=== PATIENT | male | born 1945 | race Caucasian/White ===

== ENCOUNTER → 2024-11-01 08:32 | Outpatient (REF) | payer MEDICARE, OTHER, SELFPAY ==
[2024-11-01 09:54] LABS: Hematocrit 43.0 % (39.0-52.0); Hemoglobin 15.9 g/dL (13.0-18.0); Mean Corp Hgb Conc. 37.0 g/dL (33.0-37.0); Mean Corpuscular Volume 86.0 fL (80.0-94.0); Platelet Count 227 10^3/uL (130-400); Red Cell Dist. Width 11.9 % (11.5-14.5)
[2024-11-01 10:14] LABS: Blood Urea Nitrogen 14 mg/dl (9-20); Calcium 9.7 mg/dl (8.4-10.2); Carbon Dioxide 28 mmol/L (22-30); Chloride 101 mmol/L (98-107); Glucose 102 mg/dl (70-99); Potassium 3.7 mmol/L (3.5-5.1); Sodium 135 mmol/L (135-145); eGFR > 60.00
== END ==
LOC: SDSPAT 08:32
PROVIDERS: ATTENDING PHYSICIAN Specialist; FAMILY PHYSICIAN Family Medicine
DX: Z01.818 Encounter for other preprocedural examination (principal)
CPT/HCPCS: 36415; 80048; 85027; 93005

== ENCOUNTER 2024-11-16 12:42 | Inpatient (IN) | payer MEDICARE, OTHER, SELFPAY ==
[2024-11-01 08:56] VITALS: BMI 23.8
[2024-11-15] VITALS (16 sets, daily range): BP systolic 95–153; BP diastolic 57–87; BMI 23.8
[2024-11-15] MEDS: NORMOSOL-R/PLASMALYTE-A 1000 IV (10:45)
[2024-11-15] MEDS: DILAUDID 0.25 MG IV (14:26)
[2024-11-15] MEDS: VALIUM INJECTION 5 MG IV (14:40)
--- NOTE | 2024-11-15 16:15 | PTCARENOTE ---
Addendum...1600 Traction removed at bedside on 2S as ordered by Dr Sánchez.
--- NOTE | 2024-11-15 16:52 | PTCARENOTE ---
Received pt from PACU in bed. CBI running, urine bright red no clots observed fluids wide open. VSS. 3/10 rectal pain. Rubber band traction removed @ 1600. Admission as documented.
[2024-11-15] MEDS: COLACE 100 MG PO (17:23)
[2024-11-15] MEDS: NORVASC 10 MG PO (17:23)
[2024-11-15 21:22] LABS: Glucose - Point of Care 191 mg/dl (70-99)
--- NOTE | 2024-11-15 21:37 | W.PN.UPDATE ---
Update Note
Progress Note Update
Rapid response
Unable to get BP, manual BP 64/44 95 95%. RN reports as patient sat up in bed from lying position, he felt lightheaded and noted BP being low. Patient seen and evaluated, states he feels lightheaded, felt he couldn't see much for few seconds,
Denies loosing consciousness. denies chest pain, shortness of breath, denies chills. just some irritation at the catheter site. Lungs clear, HR RR, + BS, mild tender at the pubic area, no edema, Maradiaga catheter with blood color urine Bladder scan
25cc.
Bolus ordered, Midodrine 10mg PO (held), labs ordered, telemetry, EKG
BP 105/55 80 as the bolus begin -> 135/60's 75
Patient states feeling much better
Lab resulted Na 125 continue NSS. K 3.4 KCL PO 20meq once
Urology made aware.
labs in AM, NSS
likely hypovolemia, Anaesthesia-related hypotension, postural hypotension
Orthostatic VS BID
fall precautions.
--- NOTE | 2024-11-15 22:00 | RR ---
A Rapid Response was called on this patient, please see Rapid Response form.
Pt. tried sitting up for the first time s/p surgery to ~90 degrees. Shortly after sitting up pt. stated he didn't feel very well, dizzy, and faint. Pt. was laid back, unable to be placed in Trendelenburg d/t CBI infusing. Glucose obtained within
limits but BP reading 64/44 manually at which time RR was called. Throughout event pt. would take several seconds before answering, occasionally mumbling replies, but does not think he went fully unconscious. Bolus started with positive results, BP
WNL several minutes after. Pt. had lingering feelings of 'wooziness' after event but felt much better, able to participate actively in conversation, and make jokes. He recalls that during the height of the even he was having blotchy vision and
trouble focusing on what staff members were saying. EKG obtained and tele monitor applied and reviewed by house REELING MACHINE SETUP OPERATOR. CBI continues to output tamanna red blood with occasional clots despite being wide open. Will closely monitor.
[2024-11-15 22:15] LABS: Blood Urea Nitrogen 17 mg/dl (9-20); Calcium 9.0 mg/dl (8.4-10.2); Carbon Dioxide 25 mmol/L (22-30); Chloride 94 mmol/L (98-107); Estimated Creatinine Clearance 88 ml/min; Glucose 207 mg/dl (70-99); Magnesium 2.0 mg/dl (1.6-2.3); Potassium 3.4 mmol/L (3.5-5.1); Sodium 125 mmol/L (135-145); eGFR > 60.00
[2024-11-15 22:17] LABS: Hematocrit 39.4 % (39.0-52.0); Hemoglobin 14.7 g/dL (13.0-18.0); Mean Corp Hgb Conc. 37.3 g/dL (33.0-37.0); Mean Corpuscular Volume 84.9 fL (80.0-94.0); Platelet Count 243 10^3/uL (130-400); Red Cell Dist. Width 11.7 % (11.5-14.5)
[2024-11-15] MEDS: NSS 1000 IV (23:59)
[2024-11-16] VITALS (7 sets, daily range): BP systolic 96–131; BP diastolic 51–69
[2024-11-16] MEDS: KCL 20 MEQ PO
[2024-11-16] MEDS: EMLA CREAM 5 GRAM TOPICAL ×3 (00:01→16:25)
[2024-11-16] MEDS: PERCOCET 5/325 1 TABLET PO (02:13)
--- NOTE | 2024-11-16 03:00 | PTCARENOTE ---
Pt. called stating he felt as if he had blood running down his leg and had extreme pelvic pain and cramping. Pt. noted to have moderate amount of bleeding around parra catheter and onto legs and bed. CBI still infusing wide open with bright red
bloody urine in catheter tubing. Hand irrigated and obtained ~20ml of clots varying in size. Pt. felt near immediate relief following. CBI continues to run wide open. Will monitor.
[2024-11-16] MEDS: NSS 1000 IV (05:19)
--- NOTE | 2024-11-16 06:10 | PTCARENOTE ---
Updated condominium property manager urologist Dr. Solis regarding 0300 clotting despite running CBI wide open. Instructed to leave CBI running and to keep the catheter in place until patient can be evaluated this AM by the provider.
[2024-11-16 06:32] LABS: Hematocrit 29.3 % (39.0-52.0); Hemoglobin 11.0 g/dL (13.0-18.0); Mean Corp Hgb Conc. 37.5 g/dL (33.0-37.0); Mean Corpuscular Volume 85.4 fL (80.0-94.0); Platelet Count 224 10^3/uL (130-400); Red Cell Dist. Width 11.5 % (11.5-14.5)
[2024-11-16 06:36] LABS: Blood Urea Nitrogen 20 mg/dl (9-20); Calcium 8.2 mg/dl (8.4-10.2); Carbon Dioxide 22 mmol/L (22-30); Chloride 96 mmol/L (98-107); Estimated Creatinine Clearance 103 ml/min; Glucose 153 mg/dl (70-99); Potassium 3.5 mmol/L (3.5-5.1); eGFR > 60.00
[2024-11-16 06:42] LABS: Sodium 123 mmol/L (135-145)
--- NOTE | 2024-11-16 06:52 | W.PN.UPDATE ---
Update Note
Progress Note Update
pt s/p TURP with dr macedo yesterday
has had sig hematuria post op
required several hand irrigations and cbi at high rate
pt did have rapid response called last pm due to hypotension- resolved with fluid bolus- at that time hgb stable/no cp and ekg unchanged
this am pt comfortable- abd soft
with cbi wide open- urine larkin
hand irrigated- no sig clot burden recovered
tried restarting traction- seemd to make hematuria worse
plan:
npo for now
continue cbi and observe
trend hgb
will discuss with dr macedo this am
--- NOTE | 2024-11-16 08:30 | W.PN.URO.CBU ---
Today's Communication / Plan
-
rubber band traction/tamponade x 90 minutes
CBI until 11:00
TXA
repeat H&H during early PM
will reassess later
, Anusha, at bedside
Assessment / Plan
-
post-TURP bleeding
appears to have abated
Diagnosis
-
Date of Service: November 16, 2024
-
Patient Diagnosis:
s/p TURP
Post Op Day: 1
Subjective
-
'I feel okay now.'
Objective
-
Vital Signs
Temp Pulse Resp BP Pulse Ox
97.9 F 81 16 96/51 97
11/16/24 07:30 11/16/24 07:30 11/16/24 07:30 11/16/24 07:30 11/16/24 07:30
Intake and Output
11/15/24 11/16/24 11/17/24
06:59 06:59 06:59
Intake Total 1500 / 1500
Output Total 2120 / 3060 940 / 940
Balance -620 / -1560 -940 / -940
Intake:
Oral fluids 1200 / 1200
IV fluids (Total) 300 / 300
Normosol 300 / 300
Output:
True Urine Output from CBI 0 / 3060 940 / 940
Laboratory Results
11/16/24 22:45
Physical Exam
-
General - well developed, well nourished, no acute distress
Abdomen - soft, non-tender, positive bowel sounds, no CVAT, no incisional pain or distention
Genitalia - Maradiaga: balloon deflated, repositioned, then refilled with 50 ml; applied to rubber band traction; hand-irrigated w/o clots; pink outflow
[2024-11-16] MEDS: CYKLOKAPRON 1300 MG PO (09:00)
[2024-11-16] MEDS: COLACE 100 MG PO ×3 (09:01→16:20)
[2024-11-16 09:39] LABS: Glucose - Point of Care 139 mg/dl (70-99)
--- NOTE | 2024-11-16 10:13 | CM ---
Reviewed the chart notes and spoke with the patient and his spouse at the bedside. The patient resides with his spouse in a two story home with two steps to enter. The patient has a shower chair and grab bar in bathroom. The patient reports no VN
or SNF in the past. The patient confirmed his pharmacy of choice is [facility] [address] [place]. CM continues to be available to patient/family and is monitoring medical plan for needs at discharge.
Plan: Discharge to home with no needs when medically stable.
[2024-11-16] MEDS: DETROL LA 4 MG PO (11:03)
--- NOTE | 2024-11-16 11:32 | PTCARENOTE ---
Patient compains of not feeling good.Denied feeling lightheaded.Vital signs and blood sugar checked and were all stable.Shortly after he started to have more bladder pain and i irrigated him for a few clots until he said he felt much better.Traction
was removed as ordered.Bladder irrigation continues. Irrigation to be stopped at 1130 but wanted to check with Dr. Sánchez before I do since he just had some clots.
--- NOTE | 2024-11-16 12:24 | W.PN.UPDATE ---
Update Note
Progress Note Update
Hematuria has improved
single clot with hand-irrigation
CBI running with pink outflow
Plan:
Keep CBI
TXA
rec-check H&H
posted for OR in AM IF bleeding fails to resolve
[2024-11-16 13:11] LABS: Hematocrit 25.4 % (39.0-52.0); Hemoglobin 9.6 g/dL (13.0-18.0)
[2024-11-16 13:28] LABS: Blood Urea Nitrogen 20 mg/dl (9-20); Calcium 8.4 mg/dl (8.4-10.2); Carbon Dioxide 23 mmol/L (22-30); Chloride 98 mmol/L (98-107); Estimated Creatinine Clearance 103 ml/min; Glucose 133 mg/dl (70-99); Potassium 3.5 mmol/L (3.5-5.1); Sodium 123 mmol/L (135-145); eGFR > 60.00
--- NOTE | 2024-11-16 16:14 | W.PN.UPDATE ---
Update Note
Progress Note Update
'I feel so much better.'
VSS
Maradiaga: clear to pale pink outflow
Abd: soft
Plan: CBI overnight; will reassess in AM
[2024-11-16] MEDS: CYKLOKAPRON 650 MG PO ×2 (16:20→21:38)
[2024-11-16] MEDS: NORVASC PO (17:37)
[2024-11-16 22:24] LABS: Hematocrit 23.8 % (39.0-52.0); Hemoglobin 9.0 g/dL (13.0-18.0)
[2024-11-17] MEDS: EMLA CREAM TOPICAL ×2 (01:53→08:45)
[2024-11-17] MEDS: NSS IV (01:54)
[2024-11-17 03:15] VITALS: BP 101/58
--- NOTE | 2024-11-17 07:16 | W.PN.URO.CBU ---
Today's Communication / Plan
-
stop CBI
Maradiaga removal
voiding trial
potential d/c later today
Assessment / Plan
-
post-TURP bleeding
appears to have abated
Diagnosis
-
Date of Service: November 17, 2024
-
Patient Diagnosis:
s/p TURP
Post Op Day: 2
Subjective
-
feels much better
nohand-irrigation required
Objective
-
Vital Signs
Temp Pulse Resp BP Pulse Ox
98.9 F 80 16 101/58 96
11/17/24 03:15 11/17/24 03:15 11/17/24 03:15 11/17/24 03:15 11/17/24 03:15
Intake and Output
11/16/24 11/17/24 11/18/24
06:59 06:59 06:59
Intake Total 1500 / 1500 900 / 900
Output Total 2119
Balance -620 / -1560 -1115 / -1115
Intake:
Oral fluids 1200 / 1200
IV fluids (Total) 300 / 300 900 / 900
Normosol 300 / 300
Output:
True Urine Output from CBI 2119
Laboratory Results
11/16/24 12:52
AM H&H pending
Physical Exam
-
General - well developed, well nourished, no acute distress
Chest - clear bilaterally
Abdomen - soft, non-tender, positive bowel sounds, no CVAT, no distention
Genitalia - Maradiaga with pale pink outflow
[2024-11-17 07:28] LABS: Hematocrit 25.1 % (39.0-52.0); Hemoglobin 9.3 g/dL (13.0-18.0)
[2024-11-17 07:45] VITALS: BP 126/68
[2024-11-17] MEDS: CYKLOKAPRON 650 MG PO (08:46)
[2024-11-17] MEDS: COLACE 100 MG PO ×2 (08:49→11:55)
--- NOTE | 2024-11-17 10:10 | W.PN.UPDATE ---
Update Note
Progress Note Update
Has voided 1x since Maradiaga removal: ~ 125 ml [id number], no clots
H&H improved
VS stable
feels fit for discharge.
at bedside
--- NOTE | 2024-11-17 10:11 | W.DS.TRANS ---
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
-
Discharge Instructions:
Sleep Apnea Risk Intermediate
Discharge Diagnosis/Procedures s/p TURP for BPH causing voiding dysfunction
Diet No restrictions
Activity No strenuous activity
Driving Restrictions As prior to admission
Bathing Restrictions None
Instructions:
Stand-Alone Forms:
Changes to Home Medications: No
Discharge Medications:
DC Medications w/original date entered in [employer]
cholecalciferol (vitamin D3) 10 mcg (400 unit) tablet (Vitamin D3) 1,000 units PO QPM 07/15/17
hydrochlorothiazide 25 mg tablet 25 mg PO DAILY 07/15/17
hyoscyamine sulfate 0.125 mg sublingual tablet (Levsin/SL) 0.125 mg PO PRN PRN Abd Cramping 07/15/17
amlodipine 10 mg tablet 10 mg PO QPM 11/06/24
losartan 100 mg tablet 100 mg PO DAILY 11/06/24
multivitamin 1 tab PO QPM 11/06/24
phenazopyridine 200 mg tablet 200 mg PO TID PRN dysuria 6 doses #30 tabs 11/15/24
Home Medication Changes
Pending Results: Yes (pathology)
--- NOTE | 2024-11-17 10:34 | CM ---
Reviewed the chart notes and spoke with the patient and spouse at the bedside. IMM reviewed. CM continues to be available to patient/family and is monitoring medical plan for needs at discharge.
Plan: Discharge to home when medically stable. No needs.
[2024-11-17 11:10] VITALS: BP 128/66
== END 2024-11-17 13:28 | disposition home or self-care (01) | DRG 713 ==
LOC: 2 SOUTH 12:42
PROVIDERS: Nurse Practitioner Gerontology; Specialist; ADMITTING PHYSICIAN Specialist
PROC: 0VT08ZZ Resection of Prostate, Via Natural or Artificial Opening Endoscopic (ICD-10-PCS; 2024-11-15)
DX: N40.1 Benign prostatic hyperplasia with lower urinary tract symptoms (principal); D62 Acute posthemorrhagic anemia; I95.9 Hypotension, unspecified; R31.9 Hematuria, unspecified; R33.9 Retention of urine, unspecified; I10 Essential (primary) hypertension; E16.2 Hypoglycemia, unspecified; K58.9 Irritable bowel syndrome, unspecified; Z85.821 Personal history of Merkel cell carcinoma; Z83.3 Family history of diabetes mellitus; Z82.49 Family history of ischemic heart disease and other diseases of the circulatory system
CPT/HCPCS: 80048; 82962; 83735; 85014; 85018; 85027; 86850; 86900; 86901; 88305; 93005

== ENCOUNTER 2024-11-18 10:07 | Inpatient (IN) | payer MEDICARE, OTHER, SELFPAY ==
[2024-11-18] VITALS (8 sets, daily range): BP systolic 95–147; BP diastolic 57–95
--- NOTE | 2024-11-18 07:50 | ED.GENMED ---
History of Present Illness
General
Chief Complaint: Male Genito-Urinary Symptoms
Source: patient and records
Exam Limitations: none
Time Seen by Provider: 11/18/24 07:38
History of Present Illness
History of Present Illness:
79yoM with a history of hypertension and BPH s/p TURP on 11/15/[address] Sánchez presenting with his for evaluation of hematuria. Patient was hospitalized after the procedure due to postoperative bleeding. His hemoglobin was 14.7
preoperatively and dropped to 9.0 at its lowest. He required CBI and had a rapid response due to hypotension at one point. His Maradiaga catheter was removed yesterday and he was discharged. His describes his urine as 'dilute fruit punch' at the
time of discharge. He was passing small clots overnight and now is only able to urinate in small dribbles. Urine is described as bright red. He also feels lightheaded by has not lost consciousness. He had a fever of 100.7 yesterday evening but
has not had a fever since and denies feeling feverish currently. He spoke with his urologist last night who prescribed an antibiotic but he has not been able to pick this up yet as his pharmacy was closed.
Past History
Past History
ED Past Medical History: HTN
ED Past Surgical History: Tonsilectomy
Social History
Tobacco: Non-smoker
Alcohol: None
Drug: None
Personal:
Living: with family
Phy Exam
General Physical Exam
General Presentation: well appearing and no apparent distress
General Skin: warm, dry and pale
General Habitus: normal and elderly
General Mental: alert
ENT Exam
ENT Exam: normocephalic
Gastrointestinal Exam
Gastrointestinal Exam: soft, non distended and other (+Suprapubic discomfort)
Genitourinary Exam Male
Exam Male: other (Dark red urine in urine cup. No clots visualized. )
Neurological Exam
Neurological Exam: alert
Pascual Coma Scale
Eye Opening: Spontaneous
Verbal Response: Oriented
Motor Response: Obeys Commands
GCS Total Score: 15
Skin Exam
Skin Exam: normal color and warm/dry
Psychiatric Exam
Psychiatric Exam: normal mood/affect
Sepsis
Sepsis Screening
Sepsis Assessment: Sepsis Ruled Out
Sepsis Screen
Sepsis Screen: Sepsis Ruled Out
Date: 11/18/24
Time: 11:28
Course
Orders/Labs/Results
Orders:
Orders
11/18/24 07:53
Cardiac Monitoring- Treatment ONCE
11/18/24 08:16
Complete Blood Count/With Diff Urgent
Comprehensive Metabolic Panel Urgent
Lactate Level [Lactic Acid] Urgent
PTT Urgent
Prothrombin Time Urgent
11/18/24 08:24
Urinalysis Reflex To Culture Urgent
Date Specimen was Collected: 11/18/24
Time Specimen was Collected: 08:23
Urine Microscopic Reflex Cult Urgent
Urine Culture Urgent
BELLO Source: U
Specimen Description:
Date Specimen was Collected: 11/18/24
Time Specimen was Collected: 08:23
11/18/24 09:06
Potassium Chloride [KCl] 40 meq PO NOW STA
11/18/24 09:12
CefTRIAXone [Rocephin] 2,000 mg IV NOW STA
11/18/24 09:43
Admit/Transfer Patient As Directed
Co-Sign Provider:
Level of Care: Inpatient admission
Assign to:: Telemetry
Physician / Group: yee caldwell
Diagnosis: Acute blood loss anemia,UTI,hypotension
Reason for Telemetry: Arrhythmia
Date to Stop Telemetry: 11/21/24
Time to Stop Telemetry: 11:00
Reason for Hospitalization: Acute blood loss anemia,UTI,hypotension
Expected length of stay greater than two midnights?: Yes
ELOS- Estimated Length of Stay in days: 3
I certify the patient meets the requirements for IP care: Yes
PRN Pain Medication Management As Directed
May give lesser potent ordered pain med per pt: Yes
preference::
Protocol:: Medication orders for pain may be administered in a
manner that supports deferring to patient preference
when the pt is:
- Requesting an ordered lesser potent pain medication.
Least to most potent pain medications are defined
as: acetaminophen < NSAID < tramadol < opioids
(morphine, oxycodone, hydromorphone).
- Requesting a lesser dose of the same medication IF
ORDERED.
- Requesting a less intrusive route of administration
if both routes are prescribed by the provider (PO <
IV).
11/18/24 09:44
Code Status As Directed
Resuscitation Status: Full Code
11/18/24 09:[address] Non Medication Order As Directed
Physician Order: NOTIFY MD WHEN MED REC DONE
11/18/24 09:49
Morphine Sulfate 1 mg IV Q4HPRN PRN
11/18/24 09:53
UROLOGY CONSULT Routine
Consulting Provider: Juan Sánchez
Was physician already notified: Yes
11/18/24 10:00
Blood Culture Q30M
BELLO Source: Blood/Venous
Specimen Description:
0.9% Sodium Chloride 1000 ml [Nss] 1,000 ml IV 100 mls/hr
11/18/24 10:02
Osmolality Serum [Serum Osmolality] Urgent
Osmolality, Random Urine Urgent
Urine Sodium Urgent
11/18/24 10:30
Blood Culture Q30M
BELLO Source: Blood/Venous
Specimen Description:
11/18/24 17:00
Sodium Routine
11/18/24 21:00
H&H Routine
11/19/24 09:00
CefTRIAXone [Rocephin] 1,000 mg IV Q24H
Sterile Water [Sterile Water For Injection] 10 ml IV Q24H
11/21/24 11:00
DC Protocol for Telemetry ONCE
Abnormal Lab Results
11/18/24 11/18/24
08:16 08:24
WBC 12.0 H 10^3/uL
(4.8-10.8)
RBC 2.57 L 10^6/uL
(4.70-6.10)
Hgb 8.2 L g/dL
(13.0-18.0)
Hct 21.9 L %
(39.0-52.0)
MCH 31.9 H pg
(27.0-31.0)
MCHC 37.4 H g/dL
(33.0-37.0)
Abs Immat Gran (auto) 0.1 H 10^3/uL
(0-0.05)
Absolute Neuts (auto) 8.9 H 10^3/uL
(1.4-6.5)
Absolute Monos (auto) 1.5 H 10^3/uL
(0.1-0.6)
Lymphocytes % 12.0 L %
(20.5-51.1)
Monocytes % 12.7 H %
(1.7-9.3)
PT 15.4 H Sec
(11.4-14.6)
Sodium 124 L mmol/L
(135-145)
Potassium 3.1 L mmol/L
(3.5-5.1)
Chloride 95 L mmol/L
(98-107)
Creatinine 0.6 L mg/dL
(0.7-1.3)
Glucose 126 H mg/dl
(70-99)
Calcium 8.1 L mg/dl
(8.4-10.2)
Alkaline Phosphatase 35 L U/L
(38-126)
Total Protein 5.4 L g/dl
(6.3-8.2)
Urine Ketones 1+ A
(Negative)
Ur Occult Blood Reflex 4+ A
(Negative)
Urine Nitrite (Reflex) Positive A
(Negative)
Urine Bilirubin 1+ A
(Negative)
Leukocyte Esterase Rfl 3+ A
(Negative)
Urine RBC 30-40 A /HPF
(0-2)
Urine WBC (Reflex) 11-15 A /HPF
(0-5)
Urine Bacteria (Reflex) Moderate A
(Negative)
Urine Albumin (Reflex) 4+ A
(Neg - Trace)
11/18/24 08:16
11/18/24 08:16
Vital Signs
Initial and Last Documented VS:
Initial Vital Signs
Temp Pulse Resp BP Pulse Ox
99.2 F 89 18 95/63 97
11/18/24 06:32 11/18/24 06:32 11/18/24 06:32 11/18/24 06:32 11/18/24 06:32
Last Documented Vital Signs
Temp Pulse Resp BP Pulse Ox
99.2 F 85 20 114/74 98
11/18/24 06:32 11/18/24 08:00 11/18/24 08:00 11/18/24 11:08 11/18/24 08:00
MDM/Problems Addressed
Differential Diagnosis Includes:
79yoM here with ongoing hematuria and lightheadedness. Also had a fever last night. S/p TURP 3 days ago and admitted postop for bleeding and discharged yesterday. BP 95/63 in triage. Remainder vital stable. He appears pale but is nontoxic. There
is suprapubic tenderness on exam. Differential diagnosis includes but is not limited to: Postoperative bleeding, symptomatic anemia, urinary tract infection
Initial ED plan: Check CBC, CMP, coags, type and screen, and UA.
*Pulse Oximetry
SaO2: 97
Oxygen Mode of Delivery: Room air
Patient hypoxic: no (97%)
*Critical Care Note
Total Time (30-74mins, 75-104mins- exclusive of procedures): Not Applicable
Update Note
Update Note:
Labs reveal a hemoglobin of 8.2, down from 9.3 yesterday. White count is 12 which is downtrending. Sodium 124 which is consistent with recent admission. Renal function stable. UA is nitrite positive with moderate bacteria. Urology notified of
patient. IV Rocephin ordered and patient admitted for further management.
ED Attending Note
-
Portions of this chart may have been created with voice recognition software.� Occasional wrong word or��sound alike� substitutions may have occurred due to the inherent limitations of voice recognition software.
Discharge Plan
Departure
Patient Disposition: Admit
Date of Disposition: 11/18/24
Time of Disposition: 09:18
Presentation/result/management discussed w/ accepting MD/DO: Hospitalist
Discharge Problem:
Hematuria, Acute blood loss anemia
Interventions
Interventions:
*Risk Screen - Suicide Last Done: 11/18/24 06:32
ED-Male Genitourinary Assessment Last Done: 11/18/24 09:57
[2024-11-18 08:43] LABS: Hematocrit 21.9 % (39.0-52.0); Hemoglobin 8.2 g/dL (13.0-18.0); Mean Corp Hgb Conc. 37.4 g/dL (33.0-37.0); Mean Corpuscular Volume 85.2 fL (80.0-94.0); Nucleated Red Blood Cells % 0 % (-); Platelet Count 159 10^3/uL (130-400); Red Cell Dist. Width 11.9 % (11.5-14.5)
[2024-11-18 08:45] LABS: Urine Character Clear (Clear)
[2024-11-18 08:53] LABS: Urine Squamous Cell 0-2 /LPF (Few)
[2024-11-18 08:54] LABS: INR 1.19; PT 15.4 Sec (11.4-14.6)
[2024-11-18 08:54] LABS: Urine Red Blood Cell 30-40 /HPF (0-2)
[2024-11-18 08:55] LABS: APTT 29.7 Sec (23.4-35.0)
[2024-11-18 09:04] LABS: ALT (SGPT) 17 U/L (0-50); AST (SGOT) 19 U/L (17-59); Albumin 3.5 g/dl (3.5-5.0); Alkaline Phosphatase 35 U/L (38-126); Blood Urea Nitrogen 10 mg/dl (9-20); Calcium 8.1 mg/dl (8.4-10.2); Carbon Dioxide 26 mmol/L (22-30); Chloride 95 mmol/L (98-107); Glucose 126 mg/dl (70-99); Potassium 3.1 mmol/L (3.5-5.1); Sodium 124 mmol/L (135-145); Total Protein 5.4 g/dl (6.3-8.2); eGFR > 60.00
[2024-11-18] MEDS: KCL 40 MEQ PO (09:33)
[2024-11-18] MEDS: ROCEPHIN 2000 MG IV (09:34)
--- NOTE | 2024-11-18 09:48 | HPS.HSE ---
Family Physician
-
Family Physician: Kassi Pate
Chief Complaint
-
Hematuria and fever
History of Present Illness
79-year-old male with past medical history of BPH status post recent TURP, hypertension came to the hospital with ongoing hematuria. Per spouse at bedside patient also spiked a fever last night. Patient was recently here earlier this week and had
TURP on 11/15/2024. Patient was discharged on 11/17/2024. Later that day he developed fever. Currently he denies any chest pain, shortness of breath. Denies any cough. Does noted clots overnight which has been slowly improving.
Medical History
Past Medical History
Past Medical History: Reports HTN and Other (BPH)
Past Surgical History: Reports Tonsilectomy and Urological (TURP)
Social History
Tobacco: Non-smoker
Family History
Family History: Not pertinent
Allergies / Home Medications
Allergies reflects when Allergies were last updated in [employer].
Home Medications with original date entered in [employer]
Allergy/Medication List:
Allergies
Allergy/AdvReac Type Severity Reaction Status Date / Time
tamsulosin Allergy Hypotension Verified 11/18/24 06:40
Home Medications
cholecalciferol (vitamin D3) 10 mcg (400 unit) tablet (Vitamin D3) 1,000 units PO QPM 07/15/17
hydrochlorothiazide 25 mg tablet 25 mg PO DAILY 07/15/17
hyoscyamine sulfate 0.125 mg sublingual tablet (Levsin/SL) 0.125 mg PO PRN PRN Abd Cramping 07/15/17
amlodipine 10 mg tablet 10 mg PO QPM 11/06/24
losartan 100 mg tablet 100 mg PO DAILY 11/06/24
multivitamin 1 tab PO QPM 11/06/24
phenazopyridine 200 mg tablet 200 mg PO TID PRN dysuria 6 doses #30 tabs 11/15/24
Review of Systems
-
History Source: Patient and Family
A 12 point ROS was completed and negative except as noted: Yes
Abdomen/GI: Reports Abdominal Pain
: Reports Dark Urine
Physical Exam
Vital Signs
Vital Signs
Temp Pulse Resp BP Pulse Ox
99.2 F 85 20 110/59 98
11/18/24 06:32 11/18/24 08:00 11/18/24 08:00 11/18/24 08:00 11/18/24 08:00
Physical Exam
General: No Apparent Distress and Comfortable
HEENT: NormoCephalic and Moist mucous membranes; No Anicteric
Respiratory: Clear and Non Labored Respirations; No Wheezes
Cardiac: S1/S2 and Regular Rhythm
Breast: Deferred by me
GI: Soft and Non Tender
Rectal: Deferred by Provider
Genito-urinary: No costovertebral tender and Other (Suprapubic tenderness)
Musculoskeletal: No Edema
Neuro: Awake, Alert, Oriented and AO x 3
Psych: Calm and Intact Judgment/Insight
Laboratory Results
-
11/18/24 08:16
Laboratory Results
PT 15.4 Sec (11.4-14.6) H 11/18/24 08:16
INR 1.19 11/18/24 08:16
APTT 29.7 Sec (23.4-35.0) 11/18/24 08:16
Lactic Acid 1.0 mmol/L (0.7-2.0) 11/18/24 08:16
Total Bilirubin 0.8 mg/dl (0.2-1.3) 11/18/24 08:16
AST 19 U/L (17-59) 11/18/24 08:16
ALT 17 U/L (0-50) 11/18/24 08:16
Alkaline Phosphatase 35 U/L (38-126) L 11/18/24 08:16
Data Reviewed
-
Lab Data: Labs Reviewed by me, Discussed with Patient and Discussed with Family
Impression/Plan
-
Hematuria status post recent TURP
History of BPH
Three-way Maradiaga with CBI per urology
Pain control
urology following
Complicated urinary tract infection given recent TURP and Maradiaga catheter
Follow urine culture
Continue with ceftriaxone
Follow cultures
Hyponatremia
Sodium was low earlier this week when patient was admitted
Check urine and serum awesome
Normal saline, recheck sodium later today
Anemia, suspect likely acute blood loss from recent TURP and hematuria
Continue to monitor, transfuse as necessary, goal hemoglobin greater than 7
We will check hemoglobin later tonight
Hypokalemia
Replete
History of hypertension
Currently blood pressure is on lower side
Hold HCTZ, amlodipine, losartan
DVTppx
SCD's
Full code
I spent a total of 76 minutes with the patient or on the floor. More than 50% of this time involved counseling and coordination of care.
[2024-11-18] MEDS: MORPHINE SULFATE 1 MG IV (11:19)
--- NOTE | 2024-11-18 11:58 | CM ---
Met with patient and at bedside in the ED
[facility] [address], [place]
Patient lives w/ ; multilevel home; 2 steps to enter; bath and bedroom on 1st floor; 15 steps to second floor bed and bath
PLOF: prior to recent TURP procedure patient was independent with ADLs, stairs and ambulation; was driving; retired; active with many hobbies
NO SNF or Home Health utilization history
Plan: anticipate that patient will discharge to home with assistance from who is a retired Nurse; Motion Picture Photographer will monitor for needs/services and support accordingly
--- NOTE | 2024-11-18 12:47 | CONS.URO ---
Consultation
-
Date/Time Consultation Performed: 11/18/24 1220
Requesting Provider: ED
Performing Provider: Gonzalo
Reason for Consultation: GH with urinary retention
Medical History
History of Present Illness
11/15/2024 TURP; discharged 11/17
Gross Hematuria with urinary retention developed overnight prompting return to ED
Past Medical History
Past Medical History: HTN
Past Surgical History: Tonsilectomy and Urological (TURP 11/15/24)
Social History
Tobacco: Non-smoker
Personal:
Living: With Family
Allergies/Home Medications
Allergies
Allergy/AdvReac Type Severity Reaction Status Date / Time
tamsulosin Allergy Hypotension Verified 11/18/24 06:40
Home Medications
�Medication �Instructions �Recorded �Confirmed �Type
cholecalciferol (vitamin D3) 10 1,000 units PO QPM 07/15/17 11/18/24 History
mcg (400 unit) tablet (Vitamin D3)
hydrochlorothiazide 25 mg tablet 25 mg PO DAILY 07/15/17 11/18/24 History
hyoscyamine sulfate 0.125 mg 0.125 mg PO PRN PRN Abd Cramping 07/15/17 11/18/24 History
sublingual tablet (Levsin/SL)
amlodipine 10 mg tablet 10 mg PO QPM 11/06/24 11/18/24 History
losartan 100 mg tablet 100 mg PO DAILY 11/06/24 11/18/24 History
multivitamin 1 tab PO QPM 11/06/24 11/18/24 History
phenazopyridine 200 mg tablet 200 mg PO TID PRN dysuria 6 doses 11/15/24 11/18/24 Rx
#30 tabs
Physical Exam
Vital Signs
Vital Signs
Temp Pulse Resp BP Pulse Ox
99.2 F 85 20 114/74 98
11/18/24 06:32 11/18/24 08:00 11/18/24 08:00 11/18/24 11:08 11/18/24 08:00
Physical Exam
adult male on ED gurney
tense SP area
: 24 Fr 3-way Maradiaga placed with prompt return of old clot fragments and several hundred ml of urine
Assessment / Plan
-
Gross Hematuria with urinary retention s/p TURP
blood-loss anemia -- HD stable
[2024-11-18] MEDS: NSS 1000 IV (16:54)
[2024-11-18] MEDS: DETROL LA 4 MG PO (18:00)
--- NOTE | 2024-11-18 19:00 | PTCARENOTE ---
Pt. admitted from E.D., AAO x 3, vs stable, CBI infusing with clots in tubing, call espinosa within reach.
[2024-11-18] MEDS: CYKLOKAPRON 1300 MG PO (20:09)
[2024-11-18 23:57] LABS: Hematocrit 22.4 % (39.0-52.0); Hemoglobin 8.2 g/dL (13.0-18.0)
[2024-11-19 00:08] LABS: Sodium 132 mmol/L (135-145)
[2024-11-19] MEDS: NSS 1000 IV ×2 (03:27→19:50)
[2024-11-19 03:28] VITALS: BP 134/70
[2024-11-19 06:29] LABS: Hematocrit 23.2 % (39.0-52.0); Hemoglobin 8.2 g/dL (13.0-18.0); Mean Corp Hgb Conc. 35.3 g/dL (33.0-37.0); Mean Corpuscular Volume 89.9 fL (80.0-94.0); Nucleated Red Blood Cells % 0 % (-); Platelet Count 185 10^3/uL (130-400); Red Cell Dist. Width 12.2 % (11.5-14.5)
[2024-11-19 06:54] LABS: Blood Urea Nitrogen 5 mg/dl (9-20); Calcium 8.2 mg/dl (8.4-10.2); Carbon Dioxide 23 mmol/L (22-30); Chloride 104 mmol/L (98-107); Glucose 104 mg/dl (70-99); Potassium 3.6 mmol/L (3.5-5.1); Sodium 130 mmol/L (135-145); eGFR > 60.00
[2024-11-19 07:00] VITALS: BP 138/67
--- NOTE | 2024-11-19 08:22 | W.PN.URO.CBU ---
Today's Communication / Plan
-
Plan:
stop CBI
Maradiaga to leg bag
ambulate
TXA
anticipate d/s TOMORROW with Maradiaga
Assessment / Plan
-
bleeding has stopped
Diagnosis
-
Date of Service: November 19, 2024
-
Patient Diagnosis:
gross hematuria s/p TURP
blood-loss anemia
Post Op Day: 4
Subjective
-
feels better
Objective
-
Vital Signs
Temp Pulse Resp BP Pulse Ox
99.9 F 84 14 134/70 97
11/19/24 03:28 11/19/24 03:28 11/19/24 03:28 11/19/24 03:28 11/19/24 03:28
Intake and Output
11/18/24 11/19/24 11/20/24
06:59 06:59 06:59
Intake Total 1240 / 1240
Output Total 4900 / 4900
Balance -4900 / -3660 1240 / 1240
Intake:
Oral fluids 240 / 240
IV fluids (Total) 1000 / 1000
Output:
True Urine Output from CBI 4900 / 4900
Laboratory Results
11/19/24 05:01
11/19/24 05:01
Physical Exam
-
General - well developed, well nourished, no acute distress
Abdomen - soft, non-tender, positive bowel sounds, no distention
Genitalia - Maradiaga with clear outflow
Care Review
Data Reviewed
Discussed with: Family ( at bedside)
[2024-11-19] MEDS: ROCEPHIN 1000 MG IV (08:31)
[2024-11-19] MEDS: STERILE WATER FOR INJECTION 10 ML IV (08:31)
[2024-11-19] MEDS: CYKLOKAPRON 1300 MG PO ×2 (08:32→19:53)
[2024-11-19] MEDS: DETROL LA 4 MG PO (08:32)
[2024-11-19 11:00] VITALS: BP 113/56
--- NOTE | 2024-11-19 11:50 | W.PN.HOSP.TC ---
Today's Communication/Plan
-
Monitor vital sign
see plan
Monitor of CBI per urology
Continue with Parra
Continue with antibiotic
monitor sodium
Assessment / Plan
Assessment / Plan
General: No Apparent Distress and Comfortable
HEENT: NormoCephalic and Moist mucous membranes; No Anicteric
Respiratory: Clear and Non Labored Respirations
Cardiac: S1/S2 and Regular Rhythm
GI: Soft and Non Tender
Genito-urinary: No costovertebral tender and + parra
Musculoskeletal: No Edema
Neuro: Awake, Alert, Oriented and AO x 3
Psych: Calm and Intact Judgment/Insight
Hematuria status post recent TURP
History of BPH
Three-way Parra with CBI per urology; now off cbi
will likely go home with parra
Pain control
urology following
Txa per urology
Complicated urinary tract infection given recent TURP and Parra catheter
0-2 sq epi, appears good sample. given his symptoms we will treat
Follow urine culture
Continue with ceftriaxone
Follow cultures
Hyponatremia
Sodium was low earlier this week when patient was admitted
slowly improving
Normal saline
Anemia, suspect likely acute blood loss from recent TURP and hematuria
Continue to monitor, transfuse as necessary, goal hemoglobin greater than 7
Hypokalemia
Resolved
History of hypertension
Currently blood pressure is on lower side
Hold HCTZ (likely dc given hyponatremia), amlodipine, losartan
DVTppx
SCD's
Full code
Anticipated Discharge: 24 - 48 hours
Subjective/Interval History
-
Date of Service: November 19, 2024
appears clots improving
Objective Data
-
Labs:
Laboratory Results
11/18/24 11/19/24
23:50 05:01
WBC 9.8
Hgb 8.2 L 8.2 L
Hct 22.4 L 23.2 L
Plt Count 185
Sodium 132 L D 130 L
Potassium 3.6
Chloride 104
Carbon Dioxide 23
BUN 5 L
Creatinine 0.5 L
Glucose 104 H
Calcium 8.2 L
Vital Signs:
Vital Signs
Temp Pulse Resp BP Pulse Ox
99.2 F 86 20 113/56 97
11/19/24 11:00 11/19/24 11:00 11/19/24 11:00 11/19/24 11:00 11/19/24 11:00
I&O
11/18/24 11/19/24 11/20/24
06:59 06:59 06:59
Intake Total 1240 / 1240
Output Total 4900 / 4900
Balance -4900 / -3660 1240 / 1240
[2024-11-19 15:00] VITALS: BP 147/63
[2024-11-19 19:47] VITALS: BP 145/74
[2024-11-19 23:17] VITALS: BP 150/78
[2024-11-20 03:11] VITALS: BP 121/58
[2024-11-20 07:00] VITALS: BP 136/68
[2024-11-20] MEDS: NSS IV ×2 (07:24→07:27)
[2024-11-20] MEDS: CYKLOKAPRON 1300 MG PO (07:25)
[2024-11-20] MEDS: DETROL LA 4 MG PO (07:26)
--- NOTE | 2024-11-20 08:06 | W.PN.URO.CBU ---
Today's Communication / Plan
-
fit for discharge urologically WITH KRISHNA
Assessment / Plan
-
bleeding has stopped
Diagnosis
-
Date of Service: November 20, 2024
-
Patient Diagnosis:
gross hematuria s/p TURP
blood-loss anemia
Post Op Day: 5
Subjective
-
'I feel good and want to go home.'
Objective
-
Vital Signs
Temp Pulse Resp BP Pulse Ox
98.5 F 75 18 136/68 97
11/20/24 07:00 11/20/24 07:00 11/20/24 07:00 11/20/24 07:00 11/20/24 07:00
Intake and Output
11/19/24 11/20/24 11/21/24
06:59 06:59 06:59
Intake Total 2230 / 2230
Output Total 4900 / 4900 4000 / 4000
Balance -4900 / -3660 -1770 / -1770
Intake:
Oral fluids 480 / 480
IV fluids (Total) 1750 / 1750
Output:
Urine, Krishna 500 / 500
True Urine Output from CBI 4900 / 4900 3500 / 3500
Physical Exam
-
General - well developed, well nourished, no acute distress; eating breakfast
Abdomen - soft, non-tender, positive bowel sounds, no distention
Genitalia - Krishna with pale pink urine
[2024-11-20 08:57] VITALS: BP 142/70; PULSE 88; O2SAT 98
[2024-11-20 09:02] LABS: Hematocrit 23.2 % (39.0-52.0); Hemoglobin 8.3 g/dL (13.0-18.0); Mean Corp Hgb Conc. 35.8 g/dL (33.0-37.0); Mean Corpuscular Volume 88.9 fL (80.0-94.0); Nucleated Red Blood Cells % 0 % (-); Platelet Count 230 10^3/uL (130-400); Red Cell Dist. Width 12.4 % (11.5-14.5)
[2024-11-20] MEDS: ROCEPHIN 1000 MG IV (09:18)
[2024-11-20] MEDS: STERILE WATER FOR INJECTION 10 ML IV (09:18)
[2024-11-20 09:22] LABS: Blood Urea Nitrogen 5 mg/dl (9-20); Calcium 8.6 mg/dl (8.4-10.2); Carbon Dioxide 23 mmol/L (22-30); Chloride 102 mmol/L (98-107); Glucose 145 mg/dl (70-99); Potassium 3.3 mmol/L (3.5-5.1); Sodium 131 mmol/L (135-145); eGFR > 60.00
--- NOTE | 2024-11-20 09:47 | W.PN.HOSP.TC ---
Today's Communication/Plan
-
DC home
He wants to go home
No dysuria or pain
Seen by urologist earlier and was told to go home
Assessment / Plan
Assessment / Plan
Physical exam:
General: No Apparent Distress and Comfortable
HEENT: Normocephalic and Moist mucous membranes; No Anicteric
Respiratory: Clear and Non Labored Respirations
Cardiac: S1/S2 and Regular Rhythm
GI: Soft and Non Tender
Genito-urinary: No costovertebral tender and + Maradiaga ( no gross hematuria)
Musculoskeletal: No Edema
Neuro: Awake, Alert, Oriented and AO x 3
Psych: Calm and Intact Judgment/Insight
Hematuria status post recent TURP
Acute blood loss anemia, relatively stable HGB from baseline since after surgery
History of BPH
Three-way Maradiaga with CBI per urology; now off cbi
seen by urology: dc with Maradiaga
Give script for Detrol
# Hypokalemia, replaced
Not UTI urinary tract infection given recent TURP and Maradiaga catheter
0-2 sq epi, appears good sample.
Urine culture no growth
s/p empiric ceftriaxone
Blood and urine cultures are negative
Hyponatremia
could be related to recent IVF/ surgery/NPO,
c/w fluid restriction at home
History of hypertension
Currently blood pressure is on lower side
Resume HCTZ amlodipine, losartan and advised to repeat blood work with PCP
DVTppx
SCD's
Full code
Total discharge time spent to see the patient on the floor, examine the patient, review data and lab results, discuss discharge plan with patient, nursing staff around 65 minutes.
Anticipated Discharge: Today
Subjective/Interval History
-
Date of Service: November 20, 2024
He wants to go home
No dysuria or pain
Seen by urologist earlier and was told to go home
Objective Data
-
Labs:
Laboratory Results
11/20/24
08:18
WBC 6.2
Hgb 8.3 L
Hct 23.2 L
Plt Count 230 D
Sodium 131 L
Potassium 3.3 L
Chloride 102
Carbon Dioxide 23
BUN 5 L
Creatinine 0.6 L
Glucose 145 H
Calcium 8.6
Vital Signs:
Vital Signs
Temp Pulse Resp BP Pulse Ox
98.5 F 75 18 136/68 99
11/20/24 07:00 11/20/24 07:00 11/20/24 07:00 11/20/24 07:00 11/20/24 07:25
I&O
11/19/24 11/20/24 11/21/24
06:59 06:59 06:59
Intake Total 2230 / 2230
Output Total 4900 / 4900 4000 / 4000
Balance -4900 / -3660 -1770 / -1770
--- NOTE | 2024-11-20 10:00 | PTCARENOTE ---
11/20- Med Rec completed on 11/18, confirmed meds with [facility] pharmacy. This RN went over meds with patient, who confirmed his own home meds as well. Discussed why he is not on his BP meds at this time d/t hypotension and bleeding episode upon coming
into hospital. Discharge orders will be written and followed up with outpatient for medication regimen. He verbalized understanding.
--- NOTE | 2024-11-20 10:28 | CM ---
Chart reviewed. Patient for d/c today. Patient will d/c w/ parra catheter.
Met w/ patient bedside, aware of d/c. Offered VN, patient declined, spouse is a nurse
Spouse will transport home
IMM verbally reviewed, copy provided, copy on chart
Plan: Home, no needs
[2024-11-20 11:00] VITALS: BP 137/68
--- NOTE | 2024-11-20 12:00 | PTOTSP ---
PATIENT FUNCTIONING INDEPENDENTLY ON LEVEL SURFACES WELL ELEVATIONS WITHOUT A DEVICE REQUIRING NO FURTHER ACUTE CARE SKILLED P.T. WILL DISCHARGE FROM P.T. SERVICES.
--- NOTE | 2024-11-20 13:22 | W.DCSUMMARY ---
Discharge Summary
Discharge Data
Date of Admission: 11/18/24
Date of Discharge: 11/20/24
-
Pending Results: No
Hospital Course
79 years old male with recent history of TURP procedure presented to the hospital with hematuria and discomfort. He reported mild fever at home. He had mild leukocytosis on admission. Hemoglobin was 8.2. Patient was admitted to the hospital. He
received continuous bladder irrigation. He was followed by urologist. Patient was given empiric antibiotic pending cultures. He was noted to have mild hyponatremia. Patient was given intravenous fluid. Hematuria resolved. He was kept with
Maradiaga catheter. Urologist recommended to discharge home with Maradiaga. Blood and urine culture did not show any growth. Leukocytosis resolved with no fever in the hospital. Hemoglobin remained stable around 8.3 upon discharge. He had mild
hypokalemia that was treated. He was evaluated by physical therapy with no needs found. Patient was given a prescription for Detrol. He was also advised to follow-up with his a primary care doctor to monitor sodium level while resuming HCTZ.
Patient remained hemodynamically stable was discharged home in stable condition.
Discharge Plan
-
Patient Disposition: Home (Routine Discharge)
Discharge Diagnosis/Procedures: Gross Hematuria s/p TURP
Hyponatremia, limit fluid intake to improve your sodium level, and follow with your family doctor.
Condition: Good
Diet: Regular and Restrict fluids to 64 oz
Activity: No strenuous activity
Driving Restrictions: As prior to admission
Wound Care: Maradiaga care
Referrals:
Juan Sánchez MD [Active, Urology]
Referral Note: call to schedule Wednesday AM 'Maradiaga removal' with RN
Kassi Pate MD [Family Provider, Family Practice] - in one to two weeks
Prescriptions:
New
tolterodine 4 mg Capsule,Extended Release 24hr
4 mg PO DAILY Qty: 30 0RF
Continued
hyoscyamine sulfate [Levsin/SL] 0.125 MG tablet, sublingual
0.125 mg PO PRN PRN (Reason: Abd Cramping)
hydrochlorothiazide 25 MG tablet
25 mg PO DAILY
cholecalciferol (vitamin D3) [Vitamin D3] 400 UNITS tablet
1,000 units PO QPM
multivitamin Tablet
1 tab PO QPM
amlodipine 10 mg Tablet
10 mg PO QPM
losartan 100 mg Tablet
100 mg PO DAILY
phenazopyridine 200 mg tablet
200 mg PO TID PRN (Reason: dysuria) Qty: 30 1RF
Discharge Orders:
Discharge Patient (As Directed); Ordered 11/20/24
Ordered By: Linda Herrera
Discharge Date and Time
Discharge Date/Time: 11/20/24 12:59
Print Language: UPPER SORBIAN
== END 2024-11-20 12:59 | disposition home or self-care (01) | DRG 920 ==
LOC: 4 WEST ACU 10:07
PROVIDERS: Physician Assistant; ADMITTING PHYSICIAN Internal Medicine; ATTENDING PHYSICIAN Internal Medicine; CONSULT PHYSICIAN Specialist; EMERGENCY PHYSICIAN Student in an Organized Health Care Education/Training Program; FAMILY PHYSICIAN Family Medicine
DX: N99.820 Postprocedural hemorrhage of a genitourinary system organ or structure following a genitourinary system procedure (principal); D62 Acute posthemorrhagic anemia; E87.1 Hypo-osmolality and hyponatremia; R31.0 Gross hematuria; E87.6 Hypokalemia; I10 Essential (primary) hypertension; N40.0 Benign prostatic hyperplasia without lower urinary tract symptoms; Y83.8 Other surgical procedures as the cause of abnormal reaction of the patient, or of later complication, without mention of misadventure at the time of the procedure; Z90.79 Acquired absence of other genital organ(s); Z88.8 Allergy status to other drugs, medicaments and biological substances
CPT/HCPCS: 51798; 80048; 80053; 81003; 81015; 83605; 83930; 83935; 84295; 84300; 85014; 85018; 85025; 85610; 85730; 87040; 87086; 96374; 97162; 97165; 99284

== ENCOUNTER → 2025-02-15 07:14 | Outpatient (REF) | payer MEDICARE, OTHER, SELFPAY | LOC: RAD 07:14 | PROVIDERS: ATTENDING PHYSICIAN Specialist; FAMILY PHYSICIAN Family Medicine | DX: R60.0 Localized edema (principal) | CPT/HCPCS: 93970 ==